=== PATIENT | male | born 1955 | race Hispanic/Latino ===

== ENCOUNTER 2016-10-22 18:23 | Emergency (ER) | payer SELFPAY ==
[2016-10-22] MEDS ORDERED: BOOSTRIX IM ONE (20:07)
[2016-10-22] MEDS ORDERED: ULTRAM PO ONE (20:07)
[2016-10-22] MEDS ORDERED: ZOFRAN ODT PO ONE (20:11)
--- NOTE | 2016-10-22 20:31 | Emergency Department Report ---
ED Fall HPI - General Chief Complaint: Fall Stated Complaint: HAND/RIBS/WRIST PAIN Time Seen by Provider: 10/22/16 20:04 Source: patient, family Mode of arrival: Ambulatory - History of Present Illness Initial Comments: 61-year-old male presents after a fall while at work. Patient states he tripped and fell approximately 5 feet off of a renal down 2 concrete. He is complaining of right wrist and right rib pain. His right side was the first to hit the ground. He denies loss of consciousness, states he was dizzy after the fall but that has resolved. He has abrasions to his left first second and third PIP, left forearm and left eyebrow. Incident happened around 6:00 tonight , approximately 2-1/2 hours ago. He is complaining of nausea, denies neck pain. He denies being on blood thinner. Medical history is positive for diabetes and hypertension. MD Complaint: fall -: Sudden Fall From: from height (distance) (5 feet) When Fall Occurred: 1-3 hours [employer] (5) Fall Witnessed: no Place Fall Occurred: work Loss of Consciousness: none Prolonged Down Time?: no Symptoms Prior to Fall: none Location: head, face, other Severity: moderate (but unable to give a number on 1-10 scale) Quality: aching Context: tripped/slipped Associated Symptoms: denies: headache, neck pain, numbness, weakness, shortness of breath, abdominal pain, hematuria, lightheaded, vertigo, confusion - Related Data Previous Rx's Medication Instructions Recorded Last Taken Type HYDROcodone/APAP 5-325 [Nav[place] 1 each PO Q8HR #20 tablet 10/22/16 Unknown Rx 5-325 mg TAB] Allergies Allergy/AdvReac Type Severity Reaction Status Date / Time No Known Allergies Allergy Verified 10/22/16 19:36 ED Review of Systems ROS: Stated complaint: HAND/RIBS/WRIST PAIN Other details as noted in HPI Constitutional: denies: chills, fever Eyes: denies: eye pain, eye discharge, vision change ENT: denies: ear pain, throat pain Respiratory: denies: cough, shortness of breath, wheezing Cardiovascular: denies: chest pain, palpitations Endocrine: no symptoms reported Gastrointestinal: vomiting. denies: abdominal pain, nausea, diarrhea Genitourinary: denies: urgency, dysuria Musculoskeletal: as per HPI Skin: as per HPI, other (multiple abrasions) Neurological: denies: headache, weakness, paresthesias, confusion, abnormal gait Hematological/Lymphatic: denies: easy bleeding, easy bruising ED Past Medical Hx - Past Medical History Previous Medical History?: Yes Hx Hypertension: Yes Hx Diabetes: Yes Additional medical history: CAD - Surgical History Past Surgical History?: Yes Additional Surgical History: Stents - Social History Smoking Status: Never Smoker Substance Use Type: None - Medications Home Medications: Home Medications Medication Instructions Recorded Confirmed Last Taken Type HYDROcodone/APAP 5-325 [[place] 1 each PO Q8HR #20 tablet 10/22/16 Unknown Rx 5-325 mg TAB] ED Physical Exam - General Limitations: No Limitations General appearance: alert, in no apparent distress - Head Head exam: Present: atraumatic, normocephalic - Expanded Head Exam Expanded Head exam: Present: abrasion (left eyebrow), other (denies facial pain with palpation). Absent: laceration, contusion, hematoma, racoon eyes, carvalho's sign , general tenderness - Eye Eye exam: Present: normal appearance, PERRL, EOMI. Absent: periorbital swelling , periorbital tenderness Pupils: Present: normal accommodation - Expanded Eye Exam Expanded Pupils: Regular, Round: Bilateral, Reactive: Bilateral - Neck Neck exam: Present: normal inspection, full ROM. Absent: tenderness, lymphadenopathy - Respiratory Respiratory exam: Present: normal lung sounds bilaterally. Absent: respiratory distress, wheezes, rales, rhonchi, stridor - Cardiovascular Cardiovascular Exam: Present: regular rate, normal rhythm. Absent: systolic murmur, diastolic murmur, rubs, gallop - GI/Abdominal GI/Abdominal exam: Present: soft, normal bowel sounds. Absent: tenderness - Expanded Upper Extremity Exam Left Shoulder Exam: Present: normal inspection, full ROM. Absent: tenderness, swelling Upper Arm exam: Present: normal inspection, full ROM. Absent: tenderness Elbow exam: Present: normal inspection, full ROM. Absent: tenderness, swelling Forearm Wrist exam: Present: normal inspection, full ROM, abrasion (posterior aspect approx 4 inches). Absent: tenderness, swelling, laceration, ecchymosis Hand Wrist exam: Present: normal inspection, full ROM, other (abrasions on 1-3 digits at PIP joint). Absent: tenderness, swelling Neuro motor exam: Present: wrist extension intact, thumb opposition intact, thumb IP flexion intact, thumb adduction intact, fingers 2-5 abduction intact Neurosensory exam: Present: radial nerve intact, ulnar nerve intact Vascular: Present: normal capillary refill. Absent: vascular compromise Right Shoulder Exam: Present: normal inspection, full ROM. Absent: tenderness, swelling Upper Arm exam: Present: normal inspection, full ROM. Absent: tenderness, swelling, abrasion, laceration, ecchymosis Elbow exam: Present: normal inspection, full ROM. Absent: tenderness, swelling , abrasion, laceration, ecchymosis, deformity Forearm Wrist exam: Present: normal inspection, full ROM. Absent: tenderness, swelling, abrasion, laceration, ecchymosis Hand Wrist exam: Present: normal inspection, full ROM, tenderness. Absent: swelling, abrasion, laceration, ecchymosis Neuro motor exam: Present: wrist extension intact, thumb opposition intact, thumb IP flexion intact, thumb adduction intact, fingers 2-5 abduction intact Neurosensory exam: Present: radial nerve intact, ulnar nerve intact Vascular: Present: normal capillary refill. Absent: vascular compromise - Expanded Lower Extremity Exam Left Upper Leg exam: Present: normal inspection, full ROM. Absent: tenderness Knee exam: Present: normal inspection, full ROM. Absent: tenderness, swelling Lower Leg exam: Present: normal inspection, full ROM. Absent: tenderness Ankle exam: Present: normal inspection, full ROM. Absent: tenderness Foot/Toe exam: Present: normal inspection, full ROM. Absent: tenderness Neuro vascular tendon exam: Present: no vascular compromise Gait: Positive: observed and normal - Back Exam Back exam: Present: normal inspection, full ROM. Absent: tenderness - Neurological Exam Neurological exam: Present: alert, oriented X3, CN II-XII intact, normal gait - Psychiatric Psychiatric exam: Present: normal affect, normal mood - Skin Skin exam: Present: warm, dry, intact, normal color, abrasion (left eyebrow 1 inch abrasion, left 1-3 digits at PIP joints 1cm abrasions on each, left posterior forearm 4 in abrasion). Absent: rash, ecchymosis ED Course Vital Signs 10/22/16 10/22/16 19:36 20:31 Temperature 98.3 F Pulse Rate 77 78 Respiratory 77 H 18 Rate Blood Pressure 138/86 Blood Pressure 132/84 [Left] O2 Sat by Pulse 96 98 Oximetry - Reevaluation(s) Reevaluation #1: 10/22/16 21:41 Patient admits improved pain and nausea/vomiting with tramadol and Zofran. Reevaluation #2: 10/22/16 22:39 Patient admits to worsening pain generalized. Will give Navajo 5 mg by mouth ED Medical Decision Making - Lab Data Result diagrams: 10/22/16 21:29 10/22/16 21:29 - Radiology Data PROCEDURE: CT CERVICAL SPINE WO CON TECHNIQUE: Computerized tomography of the cervical spine was performed from the skull base to T1 without contrast material. HISTORY: hit head from fall, pain COMPARISON: No prior studies are available for comparison. FINDINGS: Cervical lordosis is preserved. Uncovertebral osteophytes at C3-4 cause prominent left neural foraminal stenosis. Uncovertebral osteophytes at C5-6 cause moderate to prominent bilateral neural foraminal stenosis and mild central canal stenosis. No subluxation is seen. No prevertebral edema is seen. No fracture is seen. IMPRESSION: No fracture is seen. EXAM: XR RIBS UNILAT 2V RT HISTORY: rib pain post fall TECHNIQUE: Frontal view of the chest and 2 additional views of the right ribs PRIORS: None. FINDINGS: The cardiomediastinal silhouette appears normal. There is blunting of the left costophrenic angle consistent with pleural effusion or pleural scar. Otherwise, the lungs are clear. The bones and soft tissues are unremarkable. There is no evidence of rib fracture. There are advanced degenerative changes of the right glenohumeral joint. There are surgical clips in the right upper quadrant of the abdomen. IMPRESSION: 1. No evidence of acute rib fracture. 2. Left pleural effusion or basilar pleural scar. PROCEDURE: CT HEAD/BRAIN WO CON TECHNIQUE: Computerized tomography of the head was performed without contrast material. HISTORY: hit head from fall, pain COMPARISON: No prior studies are available for comparison. FINDINGS: Changes of chronic sinusitis are seen in the left sphenoid sinus and ethmoid sinuses. Mastoid air cells appear clear. No calvarial fracture is seen. In the lateral canthus of the right orbit there is a 1.2 cm low-density structure that may be a cyst given the density. Cerebral ventricles are normal in size. Minimal chronic small vessel ischemic changes are seen. No acute intracranial hemorrhage. Extra-axial calcification in the region of the right sylvian fissure may possibly be 5 millimeter meningioma. It causes no mass effect. IMPRESSION: No calvarial fracture or acute intracranial hemorrhage is seen. - Medical Decision Making Patient presents after approximately 5 foot fall off of a ramp. Due to patient age, distance of fall and nausea I ordered CT of head/c-spine which was unremarkable. I also ordered xray of right wrist and ribs which was the point of impact of the fall, which were both unremarkable. His cbc, cmp are unremarkable. Will give him hydrocodone 5mg for pain and advise him to f/u with his PCP in 2-3 days. His multiple abrasions were cleaned and covered with antibiotic ointment and clean dressing. - Differential Diagnosis Cervical fracture, rib/wrist fracture, musculoskeletal pain, muscle strain Critical Care Time: No Critical care attestation.: If time is entered above; I have spent that time in minutes in the direct care of this critically ill patient, excluding procedure time. ED Disposition Clinical Impression: Fall, Abrasion, Musculoskeletal pain, Muscle strain Disposition: DISCHARGED TO HOME OR SELFCARE Is pt being admited?: No Does the pt Need Aspirin: No Condition: Stable Instructions: Muscle Strain (ED), Fall Prevention for Older Adults (ED), Musculoskeletal Pain (ED), Abrasion (ED), Acute Wound Care (ED) Additional Instructions: Follow-up with your PCP in 2-3 day. Follow-up in ED in nausea, vomiting, dizziness, change in level of consciousness, pain unrelieved by medication. Prescriptions: HYDROcodone/APAP 5-325 [[place] 5-325 mg TAB] 1 each PO Q8HR #20 tablet Referrals: PRIMARY CARE, [Primary Care Provider] - 3-5 Days Forms: Work/School Release Form(ED) Time of Disposition: 23:06
--- NOTE | 2016-10-22 21:51 | Cat Scan Report ---
FINAL REPORT PROCEDURE: CT CERVICAL SPINE WO CON TECHNIQUE: Computerized tomography of the cervical spine was performed from the skull base to T1 without contrast material. HISTORY: hit head from fall, pain COMPARISON: No prior studies are available for comparison. FINDINGS: Cervical lordosis is preserved. Uncovertebral osteophytes at C3-4 cause prominent left neural foraminal stenosis. Uncovertebral osteophytes at C5-6 cause moderate to prominent bilateral neural foraminal stenosis and mild central canal stenosis. No subluxation is seen. No prevertebral edema is seen. No fracture is seen. IMPRESSION: No fracture is seen.
[2016-10-22 21:54] LABS: Eosinophils % (Auto) 0.3 % (0.0-4.3); Hematocrit 41.6 % (35.5-45.6); Hemoglobin 13.8 gm/dl (11.8-15.2); Mean Corpuscular HGB Conc 33 % (32-34); Mean Corpuscular Hemoglobin 31 pg (28-32); Mean Corpuscular Volume 95 fl (84-94); Platelet Count 208 K/mm3 (140-440); Red Blood Count 4.39 M/mm3 (3.65-5.03); Red Cell Distribution Width 13.6 % (13.2-15.2); White Blood Count 12.5 K/mm3 (4.5-11.0)
--- NOTE | 2016-10-22 21:56 | Cat Scan Report ---
FINAL REPORT PROCEDURE: CT HEAD/BRAIN WO CON TECHNIQUE: Computerized tomography of the head was performed without contrast material. HISTORY: hit head from fall, pain COMPARISON: No prior studies are available for comparison. FINDINGS: Changes of chronic sinusitis are seen in the left sphenoid sinus and ethmoid sinuses. Mastoid air cells appear clear. No calvarial fracture is seen. In the lateral canthus of the right orbit there is a 1.2 cm low-density structure that may be a cyst given the density. Cerebral ventricles are normal in size. Minimal chronic small vessel ischemic changes are seen. No acute intracranial hemorrhage. Extra-axial calcification in the region of the right sylvian fissure may possibly be 5 millimeter meningioma. It causes no mass effect. IMPRESSION: No calvarial fracture or acute intracranial hemorrhage is seen.
[2016-10-22 22:06] LABS: INR 1.13 (0.87-1.13)
[2016-10-22 22:17] LABS: Alanine Aminotransferase 60 units/L (7-56); Albumin 4.6 g/dL (3.9-5); Albumin/Globulin Ratio 1.6 %; Alkaline Phosphatase 84 units/L (35-129); Bilirubin,Total 0.8 mg/dL (0.1-1.2); Blood Urea Nitrogen 17 mg/dL (9-20); Calcium 9.3 mg/dL (8.4-10.2); Carbon Dioxide 23 mmol/L (22-30); Chloride 99.7 mmol/L (98-107); Glucose 192 mg/dL (75-100); Potassium 4.1 mmol/L (3.6-5.0); Sodium 138 mmol/L (137-145); Total Protein 7.4 g/dL (6.3-8.2)
[2016-10-22 22:18] LABS: Anion Gap 19 mmol/L
[2016-10-22] MEDS ORDERED: NORCO 5/325 PO ONE (22:39)
--- NOTE | 2016-10-22 22:39 | XRay Report ---
FINAL REPORT EXAM: XR RIBS UNILAT 2V RT HISTORY: rib pain post fall TECHNIQUE: Frontal view of the chest and 2 additional views of the right ribs PRIORS: None. FINDINGS: The cardiomediastinal silhouette appears normal. There is blunting of the left costophrenic angle consistent with pleural effusion or pleural scar. Otherwise, the lungs are clear. The bones and soft tissues are unremarkable. There is no evidence of rib fracture. There are advanced degenerative changes of the right glenohumeral joint. There are surgical clips in the right upper quadrant of the abdomen. IMPRESSION: 1. No evidence of acute rib fracture. 2. Left pleural effusion or basilar pleural scar.
--- NOTE | 2016-10-22 22:43 | XRay Report ---
FINAL REPORT EXAM: XR WRIST 3 RT HISTORY: wrist pain post fall TECHNIQUE: PRIORS: None. FINDINGS: The bones are normally aligned and mineralized. There is subchondral sclerosis at the radiocarpal and scaphoid trapezium joints. There is osteophyte formation of the radial scaphoid joint. There is no evidence of acute fracture. The soft tissues are unremarkable. IMPRESSION: No evidence of acute fracture or subluxation. 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
[2016-10-22 23:29] VITALS: BP 136/80
== END 2016-10-22 23:29 | disposition home or self-care (01) ==
LOC: ED 18:23
DX: S00.212A Abrasion of left eyelid and periocular area, initial encounter (principal); S60.811A Abrasion of right wrist, initial encounter; T14.90 Injury, unspecified; M79.1 Myalgia; I10 Essential (primary) hypertension; E11.9 Type 2 diabetes mellitus without complications; I25.10 Atherosclerotic heart disease of native coronary artery without angina pectoris; W01.0XXA Fall on same level from slipping, tripping and stumbling without subsequent striking against object, initial encounter; Y93.9 Activity, unspecified; Y92.9 Unspecified place or not applicable; Y99.9 Unspecified external cause status
CPT/HCPCS: 36415; 70450; 72125; 80053; 82962; 85025; 85610; 85730; 90471; 90715; Q0162